=== PATIENT | female | born 1935 | race African-American/Black ===

== ENCOUNTER 2019-02-20 12:25 | Inpatient (IN) | payer OTHER ==
[~2019-02-20] VITALS: Ht 160 cm; Wt 47.0 kg
[~2019-02-20 12:25] MED LIST: COREG; FISHOIL; GLUCOVANCE 5-51 EACH; HCTZ; HYZAAR; NOVOLIN N100 UNIT/3; NOVOLIN R100 UNIT/3; VITAMINS A-D-E1 EACH; ZOCOR
[2019-02-20 12:39] VITALS: BP 180/82
[2019-02-20] MEDS ORDERED: LIPITOR40 MG PO (12:55)
[2019-02-20] MEDS ORDERED: GLUCOPHAGE1000 MG PO (12:56)
[2019-02-20] MEDS ORDERED: VITAMIN D1000 UNI1 PO (12:56)
[2019-02-20 12:57] LABS: URINE BILIRUBIN NEGATIVE (Negative); URINE BLOOD 1+ (Negative); URINE CLARITY CLOUDY; URINE COLOR YELLOW; URINE GLUCOSE-RANDOM NEGATIVE (Negative); URINE KETONES NEGATIVE (Negative); URINE LEUKOCYTES-REFLEX 1+ (Negative); URINE PROTEIN TRACE (Negative); URINE UROBILINOGEN 0.2 E.U./dl (0.2-1.0)
[2019-02-20] MEDS ORDERED: ISOSORBIDE MONO60 M1 PO (12:57)
[2019-02-20 12:58] LABS: URINE NITRITE-REFLEX POSITIVE (Negative)
[2019-02-20] MEDS ORDERED: COZAAR100 MG PO (12:58)
[2019-02-20] MEDS ORDERED: ALLER-EASE180 MG PO (12:58)
[2019-02-20] MEDS ORDERED: COMBIGAN EYE DR10 ML OPHTHALMIC (13:01)
[2019-02-20] MEDS ORDERED: PRED FORTE5 ML OPHTHALMIC (13:02)
[2019-02-20] MEDS ORDERED: LANTUS SUBQ (13:03)
[2019-02-20] MEDS ORDERED: HUMALOG100 UNIT/1 SUBQ (13:03)
[2019-02-20 13:20] LABS: SQUAMOUS 0-3 Few /LPF (0-3)
[2019-02-20 13:21] LABS: BACTERIA-REFLEX >30 Many /HPF (None Seen); CASTS None Seen /LPF (None Seen); CRYSTALS None Seen /LPF (None Seen); MUCUS None Seen strn/LPF (None Seen); URINE RBC 3-10 Few /HPF (0-2)
[2019-02-20 13:45] LABS: ABSOLUTE BASOPHILS 0.1 thou/uL (0.0-0.2); ABSOLUTE EOSINOPHILS 0.1 thou/uL (0.0-0.7); ABSOLUTE LYMPHOCYTES 1.1 thou/uL (0.8-5.3); ABSOLUTE MONOCYTES 0.3 thou/uL (0.0-1.2); ABSOLUTE NEUTROPHILS 4.8 thou/uL (1.6-8.1); BASOPHILS 0.9 %; EOSINOPHILS 1.5 %; HEMATOCRIT 29.2 % (37.0-47.0); HEMOGLOBIN 9.2 gm/dL (12.0-15.0); LYMPHOCYTES 16.9 %; MCH 32.2 pg (26.0-34.0); MCHC 31.4 g/dL (28.0-37.0); MCV 102.3 fL (80.0-100.0); MONOCYTES 4.6 %; NUCLEATED RBCS 0 /100WBC; PLATELET COUNT* 202 thou/uL (150-400); POLYS 76.1 %; RBC 2.86 mil/uL (4.20-5.00); RDW-CV 16.1 % (10.5-14.5); WBC 6.3 thou/uL (4.0-11.0)
[2019-02-20 13:54] LABS: CALCIUM 9.8 mg/dL (8.5-10.1); CREATININE 0.7 mg/dL (0.6-1.3)
[2019-02-20 13:55] LABS: INR 1.1; PROTIME 11.4 Seconds (9.20-11.50)
[2019-02-20 14:10] LABS: ALBUMIN 3.8 g/dL (3.4-5.0); TOTAL PROTEIN 7.2 g/dL (6.4-8.2); TROPONIN-I LEVEL 0.11 ng/mL (<0.06)
[2019-02-20 15:35] VITALS: BP 187/83
[2019-02-20 16:00] VITALS: BP 164/71
[2019-02-20 20:00] VITALS: BP 159/76
[2019-02-21] VITALS (7 sets, daily range): BP systolic 111–191; BP diastolic 63–88
--- NOTE | 2019-02-21 05:12 | NUR ---
ASSUMED PT CARE AT 1930. NURSING ASSESSMENT COMPLETED. PT SR/ST ON CIGAR HEAD PERFORATOR THIS SHIFT. FALL PRECAUTIONS IN PLACE. Q2H REPOSITIONING COMPLETED, PT INCONTINENT OR URINE ALL NIGHT. CALL LIGHT WITHIN REACH. PT C/O PAIN TO ARMS AND HANDS WITH MOVEMENT THIS SHIFT.
[2019-02-21 05:28] LABS: ABSOLUTE LYMPHOCYTES 0.6 thou/uL (0.8-5.3); ABSOLUTE MONOCYTES 0.1 thou/uL (0.0-1.2); ABSOLUTE NEUTROPHILS 3.8 thou/uL (1.6-8.1); BASOPHILS 0.6 %; EOSINOPHILS 0.1 %; HEMATOCRIT 29.3 % (37.0-47.0); HEMOGLOBIN 9.4 gm/dL (12.0-15.0); LYMPHOCYTES 13.6 %; MCH 32.4 pg (26.0-34.0); MCHC 32.1 g/dL (28.0-37.0); MCV 101.1 fL (80.0-100.0); MONOCYTES 2.6 %; NUCLEATED RBCS 0 /100WBC; PLATELET COUNT* 183 thou/uL (150-400); POLYS 83.1 %; RDW-CV 15.6 % (10.5-14.5); WBC 4.6 thou/uL (4.0-11.0)
[2019-02-21 05:53] LABS: CALCIUM 9.6 mg/dL (8.5-10.1); CREATININE 0.7 mg/dL (0.6-1.3); POTASSIUM 3.7 mmol/L (3.5-5.1); TROPONIN-I LEVEL 0.06 ng/mL (<0.06)
--- NOTE | 2019-02-21 12:22 | EKG ---
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1935 Requested By: Cisco Doyle Order Number: [id number] MD: Dusty Davis Measurements Intervals [place] Rate: 108 P: 79 MD: 153 QRS: -63 QRSD: 102 T: 113 QT: 360 QTc: 483 Interpretive Statements Sinus tachycardia Left anterior fascicular block LVH with secondary repolarization abnormality Anterior Q waves, possibly due to LVH Compared to ECG 02/04/2006 21:20:40 Left anterior fascicular block now present Left ventricular hypertrophy now present Early repolarization now present Q waves now present Sinus rhythm no longer present Left-axis deviation no longer present Electronically Signed On 02-21-2019 12:22:31 CDT by Dusty Davis [email or web address] <ELECTRONICALLY SIGNED> By: Maine Davis MD, [facility] 02/21/19 1222 1303 1303 Maine Davis MD, [facility] /EPI
[2019-02-22] VITALS: BP 163/75
[2019-02-22 04:00] VITALS: BP 149/82
--- NOTE | 2019-02-22 04:17 | NUR ---
ASSUMED PT CARE AT 1930. NURSING ASSESSMENT COMPLETED, PT C/O PAIN TO HANDS WITH MOVEMENT OF HANDS. PAIN MEDICATION OFFERED, PT REFUSED THIS SHIFT. HOURLY ROUNDING COMPLETED, HIGH FALL PRECAUTIONS IN PLACE, Q2H REPOSITIONING COMPLETED. SR/ST ON MOULDER OPERATOR THIS SHIFT.
[2019-02-22 05:22] LABS: ABSOLUTE EOSINOPHILS 0.1 thou/uL (0.0-0.7); ABSOLUTE LYMPHOCYTES 1.8 thou/uL (0.8-5.3); ABSOLUTE MONOCYTES 0.4 thou/uL (0.0-1.2); ABSOLUTE NEUTROPHILS 4.5 thou/uL (1.6-8.1); BASOPHILS 0.5 %; EOSINOPHILS 1.7 %; HEMATOCRIT 25.4 % (37.0-47.0); HEMOGLOBIN 8.1 gm/dL (12.0-15.0); LYMPHOCYTES 26.4 %; MCH 32.3 pg (26.0-34.0); MCHC 31.9 g/dL (28.0-37.0); MCV 101.1 fL (80.0-100.0); MONOCYTES 6.2 %; MPV 9.3 fl. (7.2-11.1); NUCLEATED RBCS 0 /100WBC; PLATELET COUNT* 175 thou/uL (150-400); POLYS 65.2 %; RBC 2.51 mil/uL (4.20-5.00); RDW-CV 16.4 % (10.5-14.5); WBC 6.9 thou/uL (4.0-11.0)
[2019-02-22 05:28] LABS: CALCIUM 9.4 mg/dL (8.5-10.1); CREATININE 0.9 mg/dL (0.6-1.3); POTASSIUM 3.9 mmol/L (3.5-5.1)
[2019-02-22 07:30] VITALS: BP 170/84
--- NOTE | 2019-02-22 11:36 | CON ---
[address] [address] CONSULTATION Name: CHAITANYAOLIVE J Room: [address] IN .R.#: [id number] Admission: 02/20/19 Attend Phys: Ian Meléndez MD Discharge: Date of : 35 Report #: [id number] THIS REPORT FOR: //name// CC: Ian Meléndez [facility] physician/PCP DATE OF SERVICE: 02/20/2019 INFECTIOUS DISEASE CONSULTATION REASON FOR CONSULTATION: I was asked to evaluate concerning bacteremia. HISTORY OF PRESENT ILLNESS: The patient was admitted on 02/20 to the Emergency Room after she fell in her bathroom. She was on the toilet where she micturated. Following this, stood up and fell forward, hitting her both wrists and hitting her head. Denied any fever, chills or sweats. No syncopal episode. No evidence of seizure activity. She has had no cough or sputum production. Denies any nausea, vomiting or diarrhea. No back or flank pain. No dysuria or hematuria. No rashes or decubiti noted. She lives at home with her family members. They noticed no change in her condition prior to the fall. She is fairly weak and walks with a walker. She is under supervision most of the time when she is ambulating. ALLERGIES: ASPIRIN, CARISOPRODOL, DICLOFENAC, DIPHENHYDRAMINE, LATEX, SULFA, TAPE. MEDICATIONS: As noted on her AUG, having been started on vancomycin. PAST MEDICAL HISTORY: Hysterectomy, diabetes, hyperlipidemia, hypertension, cardiomyopathy. FAMILY HISTORY: Noncontributory. SOCIAL HISTORY: Nonsmoker, no significant alcohol intake. REVIEW OF SYSTEMS: Ten-point review was negative other than what is described above. PHYSICAL EXAMINATION: VITAL SIGNS: Afebrile and hemodynamically stable. GENERAL: She was alert and cooperative and pleasant, in no acute distress. Overall weak, lying in bed. She was a small stature and thin. SKIN: Without decubitus rash. No palpable adenopathy. HEENT: Eyes: No scleral icterus or conjunctivitis. Mouth: No lesions. [place] [address] CONSULTATION Name: OLIVE TAVARES Room: [address] IN [facility]#: [id number] Admission: 02/20/19 Attend Phys: Ian Meléndez MD Discharge: Date of : 35 Report #: [id number] NECK: Supple, with no thyromegaly or mass. LUNGS: Clear, without adventitial sounds. HEART: Regular, without murmur, gallop or rub. ABDOMEN: Soft, nontender, no hepatosplenomegaly or mass. GENITORECTAL: Not performed. BACK: No CVA tenderness or back spinal tenderness. EXTREMITIES: Without clubbing, cyanosis or edema. She had generalized weakness, but was symmetric without focal change. Sensation intact to both upper and lower extremities. NEUROLOGIC: Cranial nerves intact. PSYCHIATRIC: Mood normal. LABORATORY STUDIES: Reviewed. MICROBIOLOGY REPORTS: Urine culture is pending. Blood culture 1/2 showing gram-positive cocci. Chest x-ray was clear. X-rays of the wrists, degenerative arthritis. CT scan of the neck, cervical spine, degenerative arthritis. CT of the head, no acute intracranial change. IMPRESSION: An 83-year-old with fall at home, now with Gram-positive cocci bacteremia. I am suspecting this is a contaminant, but we will need confirmation with identification. I am seeing no fever or chills. No leukocytosis. The patient has been started on IV antibiotic therapy. We will continue such pending further culture results. She does have evidence of cystitis, but is asymptomatic. We will need to await urine culture results. I have discussed the case with family at the bedside. <ELECTRONICALLY SIGNED> By: Aston Devine MD 02/22/19 1136 1532 2046Dapreeti Devine MD /nt
--- NOTE | 2019-02-22 12:54 | NUR ---
Pt is A&O. Resides at home with her dtr and grandson. Dtr completes IADLs, and assists Pt with ADLs as needed. Pt uses a walker for mobility. No hx of HH or SNF. Goal is home at dc. Following for dc needs.
--- NOTE | 2019-02-22 13:29 | 2DMMODE ---
[place] [address] 2 D/M-MODE ECHOCARDIOGRAM Name: OLIVE TAVARES Room: [address] IN .R.#: [id number] Admission: 02/20/19 Attend Phys: Ian Meléndez, Discharge: Date of : 35 Date of Service: 02/22/19 1329 Report #: [id number] THIS REPORT FOR: //name// APPROVED REPORT Study performed: 02/22/2019 09:36:04 EXAM: Comprehensive 2D, Doppler, and color-flow Echocardiogram Patient Location: Bedside BSA: 1.42 HR: 60 bpm BP: 149/82 mmHg Other Information Study Quality: Excellent Indications Elevated Troponin 2D Dimensions IVSd: 10.31 (7-11mm) LVOT Diam: 17.08 (18-24mm) LVDd: 40.48 mm PWd: 14.80 (7-11mm) Ascending Ao: 23.29 (22-36mm) LVDs: 37.54 (25-40mm) Aortic Root: 23.95 mm Volumes Left Atrial Volume (Systole) LA ESV Index: 20.10 mL/m2 Aortic Valve AoV Peak Nicola.: 1.20 m/s AO Peak Gr.: 5.74 mmHg LVOT Max P.37 mmHg AO Mean Gr.: 3.20 mmHg LVOT Mean P.47 mmHg LVOT Max V: 0.77 m/s AO V2 VTI: 27.25 cm LVOT Mean V: 0.58 m/s KATHARINE (VTI): 1.77 cm2 LVOT V1 VTI: 21.01 cm Mitral Valve E/A Ratio: 2.36 MV Decel. Time: 100.02 ms MV E Max Nicola.: 0.88 m/s MV PHT: 29.01 ms MVA (PHT): 7.58 [place] [address] 2 D/M-MODE ECHOCARDIOGRAM Name: OLIVE TAVARES Room: [address] IN .R.#: [id number] Admission: 02/20/19 Attend Phys: Ian Meléndez, Discharge: Date of : 35 Date of Service: 02/22/19 1329 Report #: [id number] TDI E/Lateral E': 12.57 E/Medial E': 11.00 Medial E' Nicola.: 0.08 m/s Lateral E' Nicola.: 0.07 m/s Pulmonary Valve PV Peak Nicola.: 0.80 m/s PV Peak Gr.: 2.55 mmHg Tricuspid Valve RAP Estimate: 5.00 mmHg TR Peak Gr.: 17.68 mmHg RVSP: 22.68 mmHg PA Pressure: 22.68 mmHg Left Ventricle The left ventricle is normal size. There is global hypokinesis of the left ventricle. Mild concentric left ventricular hypertrophy. Left ventricular systolic function is mildly decreased. LVEF is 40-45%. Right Ventricle The right ventricle is normal size. The right ventricular systolic function is normal. Atria The left atrium size is normal. The right atrium size is normal. Aortic Valve The aortic valve is normal in structure. No aortic regurgitation is present. There is no aortic valvular stenosis. Mitral Valve The mitral valve is normal in structure. Trace mitral regurgitation. No evidence of mitral valve stenosis. Tricuspid Valve The tricuspid valve is normal in structure. Mild tricuspid regurgitation. estimate pa pressure 25 mm Hg Pulmonic Valve The pulmonary valve is normal in structure. Mild pulmonic regurgitation. Great Vessels The aortic root is normal in size. IVC [place] [address] 2 D/M-MODE ECHOCARDIOGRAM Name: TORSTEN TAVARESNIE Nikko Room: [address] IN [facility]#: [id number] Admission: 02/20/19 Attend Phys: Ian Meléndez, Discharge: Date of : 35 Date of Service: 02/22/19 1329 Report #: [id number] collapses >50% with inspiration. Pericardium There is no pericardial effusion. <Conclusion> Mild concentric left ventricular hypertrophy. LVEF is 40-45%. There is global hypokinesis of the left ventricle. <ELECTRONICALLY SIGNED> By: Uriel Huang MD, FACC 02/22/19 1329 28 28 Uriel Huang MD, FACC /INF
[2019-02-22 16:21] VITALS: BP 166/87
[2019-02-22 20:00] VITALS: BP 178/95
[2019-02-23 00:45] VITALS: BP 176/80
[2019-02-23 04:00] VITALS: BP 133/76
[2019-02-23 05:19] LABS: ABSOLUTE EOSINOPHILS 0.1 thou/uL (0.0-0.7); ABSOLUTE LYMPHOCYTES 1.7 thou/uL (0.8-5.3); ABSOLUTE MONOCYTES 0.4 thou/uL (0.0-1.2); ABSOLUTE NEUTROPHILS 4.2 thou/uL (1.6-8.1); BASOPHILS 0.3 %; EOSINOPHILS 2.3 %; HEMATOCRIT 25.7 % (37.0-47.0); HEMOGLOBIN 8.1 gm/dL (12.0-15.0); LYMPHOCYTES 26.6 %; MCH 32.1 pg (26.0-34.0); MCHC 31.7 g/dL (28.0-37.0); MCV 101.3 fL (80.0-100.0); MONOCYTES 5.9 %; MPV 9.1 fl. (7.2-11.1); NUCLEATED RBCS 0 /100WBC; PLATELET COUNT* 182 thou/uL (150-400); POLYS 64.9 %; RBC 2.54 mil/uL (4.20-5.00); WBC 6.5 thou/uL (4.0-11.0)
[2019-02-23 05:30] LABS: CALCIUM 9.4 mg/dL (8.5-10.1); CREATININE 0.8 mg/dL (0.6-1.3); POTASSIUM 3.8 mmol/L (3.5-5.1)
--- NOTE | 2019-02-23 06:41 | NUR ---
ASSUMED PT CARE AT 1910. NURSING ASSESSMENT COMPLETED AT START OF SHIFT. PT UP IN RECLINER AT START OF SHIFT. PT VOICED NO CONCERNS. HIGH FALL PRECAUTIONS IN PLACE, Q2H REPOSITIONING COMPLETED. NEGATIVE SEPSIS SCREENING THIS SHIFT. CALL LIGHT WITHIN REACH.
[2019-02-23 08:40] VITALS: BP 140/72
[2019-02-23 12:21] VITALS: BP 150/73
--- NOTE | 2019-02-23 12:31 | NUR ---
CM spoke with Pt's dtr, she informed that she now wants Pt to dc to skilled. CM informed that Pt has been refusing to participating and informed that insurance will not auth skilled if Pt does not participate. OT has signed off d/t refusals, anticipate that PT will sign off also, both recommending home with HH. CM informed dtr, dtr to come and speak with Pt today. Per Dtr, Pt is not left at home alone, dtr is with Pt during the day and grandson is home with Pt in the evenings. Updated Dr and nurse of POC. Anticipate that Pt will be ready to dc tomorrow. Following.
--- NOTE | 2019-02-23 16:33 | NUR ---
ASSUMED CARE OF PT AROUND 0730 THIS AM. REFER TO ASSESSMENT. PT CALM ALTHOUGH NONCOMPLIANT WITH MEDICATION ADMINISTRATION THIS AM. PT CLAMPED HER LIPS SHUT AND REFUSED TO TAKE MEDS. CASE MANAGEMENT WORKING WITH FAMILY IN REGARDS TO DC PLANNING. UPDATED FAMILY MEMBERS THAT CALLED ON PLAN OF CARE. NO OTHER CONCERNS AT THIS TIME. CLWR. WCTM.
[2019-02-23 16:35] VITALS: BP 187/90
[2019-02-23 20:00] VITALS: BP 180/93
[2019-02-24] VITALS: BP 166/70
[2019-02-24 04:48] LABS: ABSOLUTE EOSINOPHILS 0.2 thou/uL (0.0-0.7); ABSOLUTE LYMPHOCYTES 1.3 thou/uL (0.8-5.3); ABSOLUTE MONOCYTES 0.5 thou/uL (0.0-1.2); ABSOLUTE NEUTROPHILS 4.9 thou/uL (1.6-8.1); BASOPHILS 0.5 %; EOSINOPHILS 2.5 %; HEMATOCRIT 29.5 % (37.0-47.0); HEMOGLOBIN 9.5 gm/dL (12.0-15.0); LYMPHOCYTES 18.5 %; MCH 32.3 pg (26.0-34.0); MCHC 32.2 g/dL (28.0-37.0); MCV 100.5 fL (80.0-100.0); MONOCYTES 7.8 %; MPV 9.3 fl. (7.2-11.1); NUCLEATED RBCS 0 /100WBC; PLATELET COUNT* 200 thou/uL (150-400); POLYS 70.7 %; RBC 2.93 mil/uL (4.20-5.00); WBC 6.9 thou/uL (4.0-11.0)
[2019-02-24 04:57] LABS: CALCIUM 10.3 mg/dL (8.5-10.1); CREATININE 0.5 mg/dL (0.6-1.3); POTASSIUM 3.5 mmol/L (3.5-5.1)
--- NOTE | 2019-02-24 07:08 | NUR ---
ASSUMED PT CARE AT 1930. NURSING ASSESSMENT COMPLETED THIS SHIFT. MED SURG STATUS. HOURLY ROUNDING COMPLETED, Q2H REPOSITIONING COMPLETED. NEGATIVE SEPSIS SCREENING THIS SHIFT. CALL LIGHT WITHIN REACH. VOICES NO CONCERNS.
[2019-02-24 08:00] VITALS: BP 140/69
--- NOTE | 2019-02-24 10:34 | NUR ---
CM spoke with Pt's dtr, informed of therapy recs and informed that insurance will not auth a skilled stay. Dtr to speak with siblings to discuss disposition. Plan is home with HH. spoke with dtr. Awaiting call back from dtr. Following.
[2019-02-24 13:49] VITALS: BP 140/69
[2019-02-24] MEDS ORDERED: NORCO 5-325 TA1 EAC1 PO (14:19)
--- NOTE | 2019-02-24 14:54 | NUR ---
Pt's PCP is Dr Ernst
[2019-02-24] MEDS ORDERED: AUGMENTIN 500-1 EACH PO (15:36)
== END 2019-02-24 19:24 | disposition home health service (06) | DRG 872 ==
LOC: M.ERS 12:25 → M.TBA-ER 14:47 → M.2W 14:47
PROVIDERS: Emergency Medicine Emergency Medical Services; ADMIT Internal Medicine
PROC: 05HY33Z Insertion of Infusion Device into Upper Vein, Percutaneous Approach (ICD-10-PCS; principal; 2019-02-21)
DX: A41.9 Sepsis, unspecified organism (principal); I42.9 Cardiomyopathy, unspecified; E46 Unspecified protein-calorie malnutrition; Z68.1 Body mass index [BMI] 19.9 or less, adult; E11.9 Type 2 diabetes mellitus without complications; E78.5 Hyperlipidemia, unspecified; M19.032 Primary osteoarthritis, left wrist; M19.031 Primary osteoarthritis, right wrist; I50.9 Heart failure, unspecified; I11.0 Hypertensive heart disease with heart failure; N30.90 Cystitis, unspecified without hematuria; B96.20 Unspecified Escherichia coli [E. coli] as the cause of diseases classified elsewhere; D64.9 Anemia, unspecified; S63.502A Unspecified sprain of left wrist, initial encounter; S63.501A Unspecified sprain of right wrist, initial encounter; Z90.710 Acquired absence of both cervix and uterus; Z88.2 Allergy status to sulfonamides; Z88.8 Allergy status to other drugs, medicaments and biological substances; Z88.6 Allergy status to analgesic agent; Z91.040 Latex allergy status; W18.39XA Other fall on same level, initial encounter; Y93.89 Activity, other specified; Y92.89 Other specified places as the place of occurrence of the external cause; Y99.8 Other external cause status

== ENCOUNTER 2019-04-10 16:00 | Inpatient (IN) | payer OTHER ==
[~2019-04-10] VITALS: Ht 160 cm; Wt 46.3 kg
[~2019-04-10 16:00] MED LIST changes: +ALLER-EASE180 MG PO; +AUGMENTIN 500-1 EACH PO; +COMBIGAN EYE DR10 ML OPHTHALMIC; +COZAAR100 MG PO; +GLUCOPHAGE1000 MG PO; +HUMALOG100 UNIT/1 SUBQ; +ISOSORBIDE MONO60 M1 PO; +LANTUS SUBQ; +LIPITOR40 MG PO; +NORCO 5-325 TA1 EAC1 PO; +PRED FORTE5 ML OPHTHALMIC; +VITAMIN D1000 UNI1 PO
[2019-04-10 16:13] VITALS: BP 152/70
[2019-04-10 16:44] LABS: ABSOLUTE BASOPHILS 0.1 thou/uL (0.0-0.2); ABSOLUTE EOSINOPHILS 0.1 thou/uL (0.0-0.7); ABSOLUTE LYMPHOCYTES 1.1 thou/uL (0.8-5.3); ABSOLUTE MONOCYTES 0.3 thou/uL (0.0-1.2); ABSOLUTE NEUTROPHILS 4.4 thou/uL (1.6-8.1); BASOPHILS 1.3 %; EOSINOPHILS 2.2 %; HEMATOCRIT 33.5 % (37.0-47.0); LYMPHOCYTES 18.1 %; MCH 31.2 pg (26.0-34.0); MCHC 32.9 g/dL (28.0-37.0); MCV 94.7 fL (80.0-100.0); MONOCYTES 5.6 %; MPV 8.8 fl. (7.2-11.1); NUCLEATED RBCS 0 /100WBC; PLATELET COUNT* 261 thou/uL (150-400); POLYS 72.8 %; RBC 3.54 mil/uL (4.20-5.00); RDW-CV 14.4 % (10.5-14.5)
[2019-04-10 16:52] LABS: APTT 24.4 Seconds (25.0-31.3); CALCIUM 10.2 mg/dL (8.5-10.1); CREATININE 1.5 mg/dL (0.6-1.3); INR 1.2; POTASSIUM 3.6 mmol/L (3.5-5.1); PROTIME 11.8 Seconds (9.20-11.50)
[2019-04-10 17:07] LABS: ALBUMIN 3.3 g/dL (3.4-5.0); CK-MB MASS 2.1 ng/mL (<0.5-3.6); TOTAL BILIRUBIN 0.7 mg/dL (<0.1-1.0); TOTAL PROTEIN 7.5 g/dL (6.4-8.2)
[2019-04-10 18:25] VITALS: BP 149/67
[2019-04-10 19:00] VITALS: BP 142/67
[2019-04-10 22:44] VITALS: BP 163/68
[2019-04-10 23:45] VITALS: BP 161/85
[2019-04-11 04:00] VITALS: BP 170/76
[2019-04-11 08:00] VITALS: BP 190/81
[2019-04-11 10:43] LABS: ALBUMIN 2.8 g/dL (3.4-5.0); CALCIUM 9.2 mg/dL (8.5-10.1); POTASSIUM 3.4 mmol/L (3.5-5.1); TOTAL BILIRUBIN 0.7 mg/dL (<0.1-1.0); TOTAL PROTEIN 6.5 g/dL (6.4-8.2)
[2019-04-11 12:47] VITALS: BP 166/74
[2019-04-11 17:10] VITALS: BP 199/96
[2019-04-11 19:55] VITALS: BP 156/79
[2019-04-11 22:59] LABS: URINE BILIRUBIN NEGATIVE (Negative); URINE BLOOD TRACE (Negative); URINE CLARITY CLEAR; URINE COLOR YELLOW; URINE GLUCOSE-RANDOM TRACE (Negative); URINE KETONES NEGATIVE (Negative); URINE LEUKOCYTES-REFLEX NEGATIVE (Negative); URINE NITRITE-REFLEX NEGATIVE (Negative); URINE PROTEIN NEGATIVE (Negative); URINE UROBILINOGEN 0.2 E.U./dl (0.2-1.0)
[2019-04-12] VITALS: BP 187/92
[2019-04-12 02:07] LABS: GLYCOHEMOGLOBIN (HGB A1C) 5.7 % (4.8-5.6)
[2019-04-12 04:00] VITALS: BP 167/91
[2019-04-12 04:49] LABS: CHOLESTEROL 89 mg/dL (<200); HDL CHOLESTEROL 47 mg/dL (>40); LDL CHOLESTEROL 30 mg/dL (<100); SERUM ASSESSMENT Clear; TC:HDL 1.9 Ratio (Not establshd); TRIGLYCERIDE 60 mg/dL (<150); VLDL 12 mg/dL (<40)
[2019-04-12 08:00] VITALS: BP 149/60
--- NOTE | 2019-04-12 11:05 | EKG ---
[place] [address] ELECTROCARDIOGRAM REPORT Name: OLIVE TAVARES Room: [address] ADM IN .R.#: [id number] Admission: 04/10/19 Attend Phys: Mable Landis Discharge: Date of : 35 Report #: [id number] THIS REPORT FOR: //name// [facility] ED Test Date: 2019-04-10 Test Time: 16:13:28 Pat Name: OLIVE TAVARES Department: Room: [facility] Gender: F [place] Man: [place] : 1935 Requested By: Bari Pineda Order Number: [id number] MD: Uriel Huang Measurements Intervals [place] Rate: 105 P: 85 HI: 154 QRS: -70 QRSD: 95 T: 106 QT: 363 QTc: 480 Interpretive Statements Sinus tachycardia Left anterior fascicular block Anterior Q waves Baseline wander in lead(s) I,III,aVL Compared to ECG 02/20/2019 13:03:01 no change Electronically Signed On 04-12-2019 11:05:22 CDT by Uriel Huang [email or web address] <ELECTRONICALLY SIGNED> By: Uriel Huang MD, FACC 04/12/19 1105 1613 1613 Uriel Huang MD, FAC /EPI
[2019-04-12 11:30] VITALS: BP 146/84
[2019-04-12 16:00] VITALS: BP 141/77
[2019-04-12 21:00] VITALS: BP 171/97
[2019-04-13] VITALS (7 sets, daily range): BP systolic 121–185; BP diastolic 61–92
[2019-04-14] VITALS: BP 160/88
[2019-04-14 04:00] VITALS: BP 166/77
[2019-04-14 08:00] VITALS: BP 165/78
[2019-04-14 11:42] VITALS: BP 159/80
[2019-04-14 16:05] VITALS: BP 119/58
[2019-04-14 20:00] VITALS: BP 117/67
[2019-04-15] VITALS (7 sets, daily range): BP systolic 150–171; BP diastolic 71–87
[2019-04-15] MEDS ORDERED: CEFDINIR300 MG PO (10:54)
[2019-04-15] MEDS ORDERED: FLOMAX0.4 MG PO (10:54)
[2019-04-15] MEDS ORDERED: COZAAR 50 MG TA50 M1 PO (10:54)
[2019-04-15] MEDS ORDERED: B12INJ SUBQ (10:54)
[2019-04-15] MEDS ORDERED: ACIDOPHILUS1 EAC4 PO (10:54)
[2019-04-16] VITALS (7 sets, daily range): BP systolic 154–184; BP diastolic 71–90
[2019-04-16] MEDS ORDERED: COZAAR 50 MG TA50 M1 PO (10:45)
[2019-04-16 16:59] LABS: CALCIUM 10.2 mg/dL (8.5-10.1); CREATININE 0.7 mg/dL (0.6-1.3); POTASSIUM 4.2 mmol/L (3.5-5.1)
[2019-04-16 17:00] LABS: MAGNESIUM 0.6 mg/dL (1.8-2.4)
[2019-04-17 03:45] VITALS: BP 128/69
[2019-04-17 07:45] VITALS: BP 172/86
[2019-04-17 11:22] VITALS: BP 137/69
[2019-04-17 11:35] VITALS: BP 171/83
== END 2019-04-17 13:10 | DRG 682 ==
LOC: M.ERS 16:00 → M.2W 17:23 → M.TBA-ER 17:23 → M.2W 18:46
PROVIDERS: Family Medicine; Internal Medicine; Psychiatry & Neurology Neurology; ADMIT Internal Medicine
DX: N17.9 Acute kidney failure, unspecified (principal); E43 Unspecified severe protein-calorie malnutrition; R65.11 Systemic inflammatory response syndrome (SIRS) of non-infectious origin with acute organ dysfunction; G92 Toxic encephalopathy; Z68.1 Body mass index [BMI] 19.9 or less, adult; E11.649 Type 2 diabetes mellitus with hypoglycemia without coma; E78.5 Hyperlipidemia, unspecified; I10 Essential (primary) hypertension; N30.90 Cystitis, unspecified without hematuria; R33.9 Retention of urine, unspecified; E53.8 Deficiency of other specified B group vitamins; F03.90 Unspecified dementia, unspecified severity, without behavioral disturbance, psychotic disturbance, mood disturbance, and anxiety; B96.20 Unspecified Escherichia coli [E. coli] as the cause of diseases classified elsewhere; S62.101A Fracture of unspecified carpal bone, right wrist, initial encounter for closed fracture; X58.XXXA Exposure to other specified factors, initial encounter; Z79.4 Long term (current) use of insulin; Z79.899 Other long term (current) drug therapy; Z90.710 Acquired absence of both cervix and uterus; Z79.84 Long term (current) use of oral hypoglycemic drugs; Z88.2 Allergy status to sulfonamides; Z88.6 Allergy status to analgesic agent; Z91.040 Latex allergy status; Z91.048 Other nonmedicinal substance allergy status; Y93.89 Activity, other specified; Y92.89 Other specified places as the place of occurrence of the external cause; Y99.8 Other external cause status